=== PATIENT | female | born 2000 | race Two or more races ===

== ENCOUNTER 2023-01-19 23:47 | Emergency (ER) | payer MEDICAID, OTHER ==
[~2023-01-19] VITALS: Ht 175.3 cm; Wt 65.8 kg
[2023-01-19 23:58] VITALS: BP 113/66
--- NOTE | 2023-01-20 00:08 | NUR ---
[id number]. UPPER ABD PAIN X TODAY 06/05. PATIENT IS DX WITH LEFT OVARIAN CYST AND ENDEMETRIOSIS. SUPPOSEDLY HAVING A SURGERY WEEKS FROM NOW. PATIENT IS [id number]. ABLE TO MAKE NEEDS KNOWN. PLACED COMFORTABLY IN BED. VITALS CHECKED.
[2023-01-20] MEDS ORDERED: KETOROLAC TROMETHAMINE INJ 30 MG/ML VIAL ONE (00:58)
[2023-01-20] MEDS ORDERED: KETOROLAC TROMETHAMINE INJ 30 MG/ML VIAL IM ONE (01:00)
--- NOTE | 2023-01-20 01:04 | NUR ---
ICE PACK GIVEN
--- NOTE | 2023-01-20 01:26 | NUR ---
Patient discharged to home in stable condition. Written and verbal after care instructions given. Patient verbalizes understanding of instruction. Pt ambulatory with a steady gait
== END 2023-01-20 01:26 | disposition home or self-care (01) ==
LOC: ER 23:50
DX: N80.9 Endometriosis, unspecified (principal); R10.13 Epigastric pain; Z88.8 Allergy status to other drugs, medicaments and biological substances
CPT/HCPCS: 99283; 96372; J1885